=== PATIENT | male | born 1965 | race Hispanic/Latino ===

== ENCOUNTER 2024-10-27 23:17 | Emergency (ER) | payer OTHER ==
[~2024-10-27] VITALS: Ht 175.3 cm; Wt 87.1 kg
--- NOTE | 2024-10-27 23:25 | NUR ---
SEPSIS ALERT CALLED OVERHEAD TO ROOM 20; PT WITH TEMP OF 104.6 AND PULSE OF 164
[2024-10-27] MEDS ORDERED: IOHEXOL 350 MG/ML 100ML INFUS..BTL IV ONE (23:34)
[2024-10-27 23:41] LABS: ADD UA MICROSCOPIC YES; APPEARANCE,URINE TURBID (CLEAR); GLUCOSE, URINE (UA) NEGATIVE (NEGATIVE); LEUKOCYTE ESTERASE ,URINE 500 Leu/uL (NEGATIVE); NITRATE,URINE NEGATIVE (NEGATIVE); OCCULT BLOOD,URINE MODERATE (NEGATIVE)
[2024-10-27 23:42] LABS: IMMATURE GRANULOCYTE ABSOLUTE 0.05 K/uL (0-1); NUCLEATED RED BLOOD CELLS 0.0 % (0.0-0.19); PLATELET COUNT (AUTO) 152 K/uL (130-400); RED BLOOD CELL COUNT(AUTO) 5.26 MIL/uL (4.50-6.20); RED CELL DISTRIBUTION WIDTH 13.6 % (11.0-15.5); WHITE BLOOD COUNT (AUTO) 7.1 K/uL (4.8-10.8)
[2024-10-27] MEDS ORDERED: LACTATED RINGERS 1000ML IV ONE (23:43)
[2024-10-27] MEDS: LACTATED RINGERS 1000ML IV STA (23:43)
--- NOTE | 2024-10-27 23:43 | ERN ---
General Chief Complaint: Dizzy/Light Headed Stated Complaint: BURNING WHEN VOIDING, DIZZINESS, BODYACHES, FEVER Time Seen by MD: 23:23 Source: patient History of Present Illness Initial Comments 58-year-old healthy male who at work today noted painful urination accompanied with fevers chills aches and lightheadedness. He comes to the emergency room stating that he has a urinary tract infection. He says he has had one in the past many years ago. When asked about other medical problems he states none. On arrival in the emergency room the patient is febrile tachycardic and diaphoretic a sepsis alert was called. Allergies: Coded Allergies: No Known Allergies (Unverified Allergy, Unknown, 10/27/24) Past Medical History Past Medical History: No Pertinent History Past Surgical History: None Constitutional: (+) chills, (+) diaphoresis, (+) fever, (+) weakness EENTM: (-) eye pain, (-) blurred vision, (-) tearing, (-) double vision, (-) ear pain, (-) ear discharge, (-) nose pain, (-) nose congestion, (-) throat pain, (-) Throat swelling, (-) mouth pain, (-) tooth pain, (-) mouth swelling, (-) other documentation Respiratory: (+) short of breath Cardiovascular: (-) chest pain, (-) edema, (-) palpitations, (-) syncope, (-) dyspnea on exertion, (-) other documentation Gastrointestinal/Abdominal: (-) nausea, (-) vomiting, (-) diarrhea, (-) abdominal pain, (-) abdominal distention, (-) constipation, (-) rectal bleeding, (-) dark stool/melena, (-) other documentation Genitourinary: (+) dysuria Musculoskeletal: (-) Neck pain, (-) back pain, (-) Flank Pain, (-) joint pain, (-) joint swelling, (-) muscle pain, (-) muscle stiffness, (-) gout, (-) other documentation Neuro: (-) altered mental status, (-) headache, (-) syncope, (-) paralysis, (-) numbness, (-) seizure, (-) pre-existing deficit, (-) tremors, (-) weakness, (-) dizziness, (-) slurred speech, (-) vertigo, (-) other documentation Physical Exam General Appearance: (+) moderate distress General Appearance comment Alert oriented diaphoretic sweating tachycardic Orientation: (+) alert, (+) oriented x 3 Head/Face Trauma: No Eye: bilateral eye normal inspection, bilateral eye PERRL, bilateral eye EOMI Ear, Nose, Throat: (+) hearing grossly normal, (+) normal ENT inspection, (+) normal pharynx Neck: (+) normal inspection, (+) supple, (+) full range of motion Respiratory: (+) chest non-tender, (+) lungs clear, (+) well ventilated Heart: (+) tachycardia Vascular: (+) no edema, (+) normal peripheral pulse Gastrointestinal: (+) soft, (+) non-tender, (+) bowel sound present Results Laboratory and Microbiology Lab and Micro Result Laboratory Tests Test 10/27/24 23:27 10/27/24 23:30 10/27/24 23:33 10/28/24 00:24 Influenza Type A Antigen Negative For Type A Influenza Type B Antigen Negative For Type B SARS-CoV-2, RNA, NAAT NEGATIVE SARS CoV-2 Group A Streptococcus Rapid negative (NEGATIVE) Urine Color YELLOW (YELLOW) Urine Appearance TURBID (CLEAR) Urine pH 6.5 (5.0-8.0) Urine Specific [place] 1.025 (1.001-1.031) Urine Protein 200 mg/dL (NEGATIVE) H Urine Glucose (UA) NEGATIVE mg/dL (NEGATIVE) Urine Ketones 5 mg/dL (NEGATIVE) H Urine Occult Blood MODERATE (NEGATIVE) H Urine Nitrate NEGATIVE (NEGATIVE) Urine Bilirubin NEGATIVE mg/dL (NEGATIVE) Urine Urobilinogen 0.2 mg/dL (0.2-1.0) Urine Leukocyte Esterase 500 Salvatore/uL (NEGATIVE) H Urine RBC TNTC /HPF (0-1) H Urine WBC TNTC /HPF (0-1) H Urine WBC Clumps (Auto) MOD /HPF (0-1) Urine Transitional Epithelial Cells Few /HPF (None Seen) Urine Bacteria RARE /HPF (None Seen) White Blood Count 7.1 K/uL (4.8-10.8) Red Blood Count 5.26 MIL/uL (4.50-6.20) Hemoglobin 16.7 g/dL (14.0-18.0) Hematocrit 46.8 % (42-54) Mean Corpuscular Volume 89.0 fL (79-99) Mean Corpuscular Hemoglobin 31.7 pg (27.0-33.0) Mean Corpuscular Hemoglobin Concent 35.7 g/dL (32.0-36.0) Red Cell Distribution Width 13.6 % (11.0-15.5) Platelet Count 152 K/uL (130-400) Mean Platelet Volume 11.0 fL (7.5-10.5) H Immature Granulocyte % (Auto) 0.7 % (0-1) Neutrophils (%) (Auto) 70.5 % (40.0-77.0) Lymphocytes (%) (Auto) 27.1 % (21.0-51.0) Monocytes (%) (Auto) 0.7 % (3.0-13.0) L Eosinophils (%) (Auto) 0.6 % (0.0-8.0) Basophils (%) (Auto) 0.4 % (0.0-5.0) Neutrophils # (Auto) 5.0 K/uL (1.8-7.7) Lymphocytes # (Auto) 1.9 K/uL (1.0-4.8) Monocytes # (Auto) 0.1 K/uL (0.1-1.0) Eosinophils # (Auto) 0.04 K/uL (0.00-0.70) Basophils # (Auto) 0.03 K/uL (0.00-0.20) Absolute Immature Granulocyte (auto 0.05 K/uL (0-1) Nucleated Red Blood Cells 0.0 % (0.0-0.19) Sodium Level 139 mmol/L (136-145) Potassium Level 3.4 mmol/L (3.5-5.1) L Chloride Level 105 mmol/L (101-111) Carbon Dioxide Level 24 mmol/L (21-32) Blood Urea Nitrogen 19 mg/dL (7-18) H Creatinine 1.4 mg/dL (0.5-1.3) H Glomerular Filtration Rate Calc 59 mL/min (>90) Random Glucose 131 mg/dL (70-105) H Lactic Acid Level 2.4 mmol/L (0.8-2.5) Total Calcium 8.5 mg/dL (8.5-10.1) Magnesium Level 1.70 mg/dL (1.80-2.40) L Total Creatine Kinase 127 U/L (21-232) Troponin I High Sensitivity 6 ng/L (4-75) Blood Gas Specimen Type Arterial Arterial Blood pH 7.538 (7.350-7.450) Arterial Blood Partial Pressure CO2 22 mmHg (35-48) L Arterial Blood Partial Pressure O2 106.8 mmHg (83.0-108.0) Arterial Blood HCO3 18.4 mmol/L (21.0-28.0) L Arterial Blood Oxygen Saturation 98.5 % (94.0-98.0) H Arterial Blood Base Excess -1.9 mmol/L (-2.0-3.0) Blood Gas Temperature 37.0 CELSIUS (35.5-37.0) Blood Gas Flow-by 2.00 L/min (0.00-15.00) Blood Gas Vent Mode 2LNC (ROOM AIR) FiO2 28.0 % Blood Gas Specimen Comment RR RN Test 10/28/24 02:15 Lactic Acid Level 1.9 mmol/L (0.8-2.5) MDM MDM: Differential diagnosis: UTI, pyelonephritis, perforated ulcer disease, upper respiratory tract infection, acute OR, Rationale: Tests considered and ordered secondary to shared decision making include: Previous outside records reviewed: Old ER visits. Risk of complication and/or morbidity or mortality of patient management: None Medications-Per medication reconciliation Need for hospitalization: Patient does meet criteria for hospitalization. Need for emergency major/minor surgery: No There are no social concerns with this patient. Prescription drug management Prescriptions will include symptomatic care Patient's prior external medical records from other ER visits were reviewed by me as indicated. Prior testing and results from previous visits were reviewed. Prior tests were taken into account with medical decision making and resource utilization, independent historian/historians were used to obtain complete medical history. I independently interpreted the test that were performed, results were reviewed by me and considered findings on radiology if ordered. Patient's CBC is normal. He does have a urinary tract infection with a large urine esterase activity. Chemistry panel initially showed a lactate of 2.4, after 2 L of fluid his serum lactate decreased to 1.9. Patient's BUN and creatinine are both elevated by a very small amount. I did give the patient a g of Rocephin. I will discharge him with a seven day supply of Ancef. ED Course Orders Procedure Category Date Status Time Iv Insertion CPOE 10/27/24 Transmitted 23:27 Pulse Ox(Continuous) RT 10/27/24 Transmitted 23:27 Vital Signs Per CPOE 10/27/24 Transmitted Routine 23:27 12 Lead Ekg Tracing- EKG 10/27/24 Logged Technical 23:27 Cbc With Differential LAB 10/27/24 Complete 23:27 Blood Cult JACI 10/27/24 In Process 23:27 Urinalysis Profile LAB 10/27/24 Complete 23:27 Culture Urine JACI 10/27/24 In Process 23:27 Creatine Kinase, Total LAB 10/27/24 Complete 23:27 Troponin I High LAB 10/27/24 Complete Sensitivity 23:27 Lactic Acid LAB 10/27/24 Complete 23:27 Basic Metabolic Panel LAB 10/27/24 Complete 23:27 Covid Rna Naat LAB 10/27/24 Complete 23:27 Influenza Type A & B, LAB 10/27/24 Complete Rapid 23:27 Rapid (Group A Strep) LAB 10/27/24 Complete 23:27 12 Lead Ekg Tracing- EKG 10/27/24 Logged Technical 23:27 Lactated Ringers PHA 10/27/24 Complete 1000ml (Lactated 23:31 Ceftriaxone 1g Vial PHA 10/28/24 Complete (Rocephine 1g Inj) 00:00 Ct Abdomen/Pelvis CT 10/27/24 Resulted W/Wo Contras 23:31 Acetaminophen 500mg PHA 10/27/24 Complete Tab (Tylenol 500mg T 23:33 Acetaminophen 500mg PHA 10/28/24 Complete Tab (Tylenol 500mg T 00:00 Arterial Blood Gas RT 10/27/24 Transmitted 23:38 Iohexol (Omnipaque) PHA 10/28/24 Complete 00:23 Arterial Blood Gas LAB 10/28/24 Complete 00:24 Lactated Ringers PHA 10/28/24 In Process 1000ml (Lactated 01:00 Lactic Acid LAB 10/28/24 Complete 02:00 Magnesium LAB 10/28/24 Complete 01:23 Current Medications Medications (Trade) Dose Ordered Sig/Isaak Route PRN Reason Start Time Stop Time Status Last Admin Dose Admin Acetaminophen (TYLenol 500MG TAB) 500 mg STK-MED ONCE .ROUTE 10/27/24 23:33 10/27/24 23:33 DC Acetaminophen (TYLenol 500MG TAB) 1,000 mg ONCE ONCE PO 10/28/24 00:00 10/28/24 00:01 DC 10/27/24 23:42 Ceftriaxone Sodium (ROCEphine 1G INJ) 1 gm ONCE ONCE IVPB 10/28/24 00:00 10/28/24 00:01 DC 10/27/24 23:51 Iohexol (Omnipaque) 35,000 mg STK-MED ONCE IV 10/28/24 00:23 10/28/24 00:24 DC Lactated Ringer's (Lactated Ringers 1000ml) 1,000 ml BOLUS IV 10/28/24 01:00 11/27/24 00:59 10/28/24 01:07 Lactated Ringer's (Lactated Ringers 1000ml) 1,000 ml BOLUS STAT IV 10/27/24 23:31 10/27/24 23:37 DC 10/27/24 23:43 Vital Signs Date Time Temp Pulse Resp B/P (MAP) Pulse Ox O2 Delivery O2 Flow Rate FiO2 10/28/24 02:21 100.2 104 22 108/73 93 Room Air* 0 21 10/28/24 00:01 102.7 122 22 108/71 94 Nasal Cannula* 2 28 10/27/24 23:44 104.5 149 38 150/91 92 Room Air* 0 21 10/27/24 23:42 104.5 10/27/24 23:24 104.5 164 32 203/109 94 Room Air DX & DISP Disposition: Discharge Departure Impression: Primary Impression: Urinary tract infection Additional Impression: Lactic acidosis Condition: Stable Scripts Cephalexin Monohydrate (Keflex) 500 Mg Cap 500 MG PO QID for 7 Days, #28 CAP Prov: LANDON TRIPLETT MD 10/28/24 Additional Instructions: You have a urinary tract infection. You also have signs of dehydration. Please take your antibiotics for the full course. Please drink plenty of water, drink enough water so that your urine runs clear at least once a day. Your CT scan does show bilateral kidney stones however none of them are blocking your urine. Please return if your symptoms get worse or if you do have recurrent feelings of dizziness fevers chills. Referrals: NONE (PCP) LANDON TRIPLETT MD Oct 27, 2024 23:43
[2024-10-27 23:46] LABS: WBC CLUMP MOD /HPF (0-1)
[2024-10-27 23:47] LABS: RAPID GROUP A STREP negative (NEGATIVE)
[2024-10-27 23:50] LABS: CREATININE 1.4 mg/dL (0.5-1.3); GLOMERULAR FILTR. RATE CALC 59.0 mL/min (>90); GLUCOSE,RANDOM 131.0 mg/dL (70-105); SODIUM SERUM 139.0 mmol/L (136-145); UREA NITROGEN, BLOOD 19.0 mg/dL (7-18)
[2024-10-27 23:50] LABS: SARS-CoV-2, RNA, NAAT NEGATIVE SARS CoV-2 (NEGATIVE)
[2024-10-27 23:54] LABS: INFLUENZA TYPE A Negative For Type A (NEGATIVE); INFLUENZA TYPE B Negative For Type B (NEGATIVE)
[2024-10-27 23:55] LABS: CREATINE KINASE, TOTAL 127.0 U/L (21-232)
[2024-10-28 00:15] VITALS: TEMP 102.7
[2024-10-28] MEDS ORDERED: IOHEXOL 350 MG/ML 100ML INFUS..BTL IV ONE (00:23)
[2024-10-28 00:26] LABS: ABG BASE EXCESS -1.9 mmol/L (-2.0-3.0); ABG HCO3 18.4 mmol/L (21.0-28.0); ABG OXYGEN SATURATION 98.5 % (94.0-98.0); ABG PCO2 22 mmHg (35-48); ABG PH 7.538 (7.350-7.450); DEVICE COMMENT RR RN; PO2, ARTERIAL BG 106.8 mmHg (83.0-108.0); TEMPERATURE, CELSIUS BG 37.0 CELSIUS (35.5-37.0); VENT MODE, BG 2LNC (ROOM AIR)
[2024-10-28] MEDS: LACTATED RINGERS 1000ML IV SCH (01:07)
--- NOTE | 2024-10-28 01:27 | HMCIMG ---
EXAM: CT Abdomen and Pelvis without and with IV contrast. CLINICAL HISTORY: Nephrolithiasis. TECHNIQUE: Post-contrast thin collimated axial CT images of the abdomen and pelvis were obtained, with sagittal and coronal reformatted images also submitted. A CT scan is done according to ALARA (As Low As Reasonably Achievable). COMPARISON: None. FINDINGS: Unremarkable visualized lung parenchyma. There is no focal abnormality appreciated within the liver, gallbladder, pancreas, spleen, or adrenals. There are a couple of 2-3 mm nonobstructive bilateral renal calculi. 3 mm cortical cyst in the interpolar region of the left kidney. There is no obvious bowel wall thickening. Bowel loops are normal in caliber without evidence of obstruction or ileus. The appendix is unremarkable. The urinary bladder is partially distended with mild to moderate wall thickening. Moderate enlargement of the prostate. The prostate measures 6.4 x 6.4 x 5.4 cm. No lymphadenopathy. No free fluid. No pneumoperitoneum. No gross abnormality in the abdominal vessels. There is no acute osseous abnormality. Thoracolumbar spondylosis. IMPRESSIONS: Nonobstructive renal calculi bilaterally. No ureteral calculus or hydronephrosis is evident. Moderate prostatomegaly with mild to moderate chronic cystitis. 3 mm cortical cyst in the interpolar region of the left kidney. /Parth
[2024-10-28] MEDS ORDERED: CEPH500B PO (02:38)
[2024-10-28 03:40] VITALS: BP 110/64; PULSE 99; RESP 22; TEMP 99.4; O2SAT 95
--- NOTE | 2024-10-28 03:40 | NUR ---
PER ED MD, PATIENT CLEARED FOR DISCHARGE
--- NOTE | 2024-10-28 05:30 | EKG ---
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
== END 2024-10-28 03:41 | disposition home or self-care (01) ==
LOC: EDH 23:17
DX: N39.0 Urinary tract infection, site not specified (principal); E87.20 Acidosis, unspecified; Z20.822 Contact with and (suspected) exposure to COVID-19
CPT/HCPCS: 99285; 74178; 96365; 87635; 82550; 83735; 84484; 80048; 82803; 85025; 87040 ×2; 87086 ×3; 87186 ×2; 87880; 87804 ×2; 83605 ×2; 81001; 36415 ×2; 93005; 96361; 36600; J7120 ×2; J0696; Q9967

== ENCOUNTER 2024-10-29 09:51 | Inpatient (IN) | payer OTHER ==
[~2024-10-29] VITALS: Ht 175.3 cm; Wt 85.7 kg
[~2024-10-29 09:51] MED LIST: CEPH500B PO
--- NOTE | 2024-10-29 10:13 | ERN ---
General Chief Complaint: Painful Urination Stated Complaint: PAINFUL URINATION Time Seen by MD: 09:52 Source: patient History of Present Illness Initial Comments Patient is a 58-year-old gentleman coming in with dysuria. Patient states that he has seen couple of days ago in the hospital hydrated fluids due to urinary tract infection and lactic acidosis he presented with. He states since then he has been having some discomfort in his here for further evaluation. Allergies: Coded Allergies: No Known Allergies (Unverified Allergy, Unknown, 10/27/24) Home Meds Active Scripts Cephalexin Monohydrate (Keflex) 500 Mg Cap, 500 MG PO QID for 7 Days, #28 CAP Prov:LANDON TRIPLETT MD 10/28/24 Past Medical History Past Medical History: UTI Past Surgical History: None ROS Dictation CONSTITUTIONAL: No chills, no fever, no weakness, no diaphoresis, no malaise. HEAD/FACE: No signs of trauma. EENT: No eye pain, no blurred vision, no tearing, no double vision, no ear pain, no ear discharge, no nose pain, no nasal congestion, no throat pain, no throat swelling, no mouth pain. RESPIRATORY: No cough, no orthopnea, no SOB, no stridor, no wheezing. CARDIOVASCULAR: No chest pain, no edema, no palpitations, no syncope. GASTROINTESTINAL/ABDOMINAL: No abdominal pain, no constipation, no diarrhea, no nausea, no vomiting. GENITOURINARY: No abnormal discharge, dysuria, no frequent urination, no hematuria. No complaints of pain in the genitals. MUSCULOSKELETAL: No back pain, no gout, no joint pain, no joint swelling, no muscle pain, no muscle stiffness, no neck pain. INTEGUMENTARY: No change in color, no change in hair/nails, no dryness, no lesion, no lumps, no rash. NEUROLOGICAL/PSYCH: No anxiety, not depressed, no emotional problem, no headache, no numbness, no pre-existing deficit, no history of seizures, no tremors, no weakness. HEMATOLOGIC/LYMPHATIC: Not anemic, no history of blood clots, no apparent bleeding, no bruising, glands not swollen. All Systems Negative, Except as Noted. Physical Exam Physical Exam Dictation VITAL SIGNS: Reviewed. GENERAL APPEARANCE: Alert, oriented x3, no acute distress, obese. HEAD AND FACE: Non-traumatic. EYES: PERRL, pink conjunctivas, eyelid no trauma, anterior chamber clear. EARS: Pinnas intact and no signs of trauma or erythema. Ear canals clear and no discharge. TMs no erythema. NOSE: No discharge, no bleeding. OROPHARYNX: Mouth normal, teeth no caries, tongue pink. Pharynx clear, no erythema. Tonsils no exudates, no abscesses noted. Mucous membrane moist. NECK: Supple, non-tender, no thyromegaly, no masses, no JVD, no bruits. BREAST: Deferred. CHEST: No tenderness, no crepitus, no paradoxical movement, no retractions. LUNGS: Clear, well-ventilated, symmetric, no rales, no wheezing, no rhonchi, no stridor, good breath sounds bilaterally. HEART: Regular rate, regular rhythm, no murmur, no gallops. VASCULAR: No peripheral edema. ABDOMEN: Soft, positive bowel sounds, nondistended, no guarding, nontender, no rebound, no masses no hepatomegaly, no splenomegaly, no Maldonado's sign, no hernias. RECTAL: Deferred. GENITAL: Deferred. NEUROLOGICAL: Normal speech, gross motor function intact, gross sensory function intact. MUSCULOSKELETAL: Neck nontender, full range of motion, back nontender, full range of motion. EXTREMITIES: Nontender, full range of motion. SKIN: Color pink, dry, no turgor, no rash, no lacerations, no abrasions, no contusions. LYMPHATICS: Deferred. Results Laboratory and Microbiology Lab and Micro Result Laboratory Tests Test 10/29/24 10:06 10/29/24 10:44 White Blood Count 14.8 K/uL (4.8-10.8) H Red Blood Count 5.22 MIL/uL (4.50-6.20) Hemoglobin 16.4 g/dL (14.0-18.0) Hematocrit 47.5 % (42-54) Mean Corpuscular Volume 91.0 fL (79-99) Mean Corpuscular Hemoglobin 31.4 pg (27.0-33.0) Mean Corpuscular Hemoglobin Concent 34.5 g/dL (32.0-36.0) Red Cell Distribution Width 14.1 % (11.0-15.5) Platelet Count 132 K/uL (130-400) Mean Platelet Volume 11.2 fL (7.5-10.5) H Immature Granulocyte % (Auto) 0.5 % (0-1) Neutrophils (%) (Auto) 85.8 % (40.0-77.0) H Lymphocytes (%) (Auto) 6.8 % (21.0-51.0) L Monocytes (%) (Auto) 5.9 % (3.0-13.0) Eosinophils (%) (Auto) 0.7 % (0.0-8.0) Basophils (%) (Auto) 0.3 % (0.0-5.0) Neutrophils # (Auto) 12.7 K/uL (1.8-7.7) H Lymphocytes # (Auto) 1.0 K/uL (1.0-4.8) Monocytes # (Auto) 0.9 K/uL (0.1-1.0) Eosinophils # (Auto) 0.11 K/uL (0.00-0.70) Basophils # (Auto) 0.04 K/uL (0.00-0.20) Absolute Immature Granulocyte (auto 0.08 K/uL (0-1) Segmented Neutrophils % 62 % (40-70) Band Neutrophils % 28 % (0-2) H Lymphocytes % (Manual) 6 % (22-44) L Monocytes % (Manual) 3 % (2-9) Eosinophils % (Manual) 1 % (1-6) Nucleated Red Blood Cells 0.0 % (0.0-0.19) Differential Comment MANUAL DIFFERENTIAL White Cell Morphology Comment CONSISTENT W/DIFF Platelet Morphology Comment ADEQUATE Red Blood Cell Morphology NORMAL Sodium Level 139 mmol/L (136-145) Potassium Level 3.8 mmol/L (3.5-5.1) Chloride Level 105 mmol/L (101-111) Carbon Dioxide Level 27 mmol/L (21-32) Blood Urea Nitrogen 19 mg/dL (7-18) H Creatinine 1.2 mg/dL (0.5-1.3) Glomerular Filtration Rate Calc 71 mL/min (>90) Random Glucose 112 mg/dL (70-105) H Total Calcium 8.8 mg/dL (8.5-10.1) Urine Color YELLOW (YELLOW) Urine Appearance HAZY (CLEAR) Urine pH 7.5 (5.0-8.0) Urine Specific [place] 1.030 (1.001-1.031) Urine Protein 100 mg/dL (NEGATIVE) H Urine Glucose (UA) NEGATIVE mg/dL (NEGATIVE) Urine Ketones 20 mg/dL (NEGATIVE) H Urine Occult Blood MODERATE (NEGATIVE) H Urine Nitrate NEGATIVE (NEGATIVE) Urine Bilirubin NEGATIVE mg/dL (NEGATIVE) Urine Urobilinogen >=8.0 mg/dL (0.2-1.0) H Urine Leukocyte Esterase 500 Salvatore/uL (NEGATIVE) H Urine RBC 26-50 /HPF (0-1) H Urine WBC TNTC /HPF (0-1) H Urine Bacteria FEW /HPF (None Seen) Labs Reviewed?: Yes EKG/XRAY/US/CT/MRI CT Scan Comment [address] [place] [address] IMAGING REPORT Signed PATIENT: MAURICE CHAVEZ MR#: [id number] : 1965 SEX: M AGE: 58 LOCATION: [facility] ORDER 33 STATUS: [facility] REPORT#: [id number] SERVICE 233 REASON: nephrolithiasis ORDERING PHYSICIAN: LANDON TRIPLETT MD PROCEDURE: ABD PELWWO - CT ABDOMEN/PELVIS W/WO CONTRAS EXAM: CT Abdomen and Pelvis without and with IV contrast. CLINICAL HISTORY: Nephrolithiasis. TECHNIQUE: Post-contrast thin collimated axial CT images of the abdomen and pelvis were obtained, with sagittal and coronal reformatted images also submitted. A CT scan is done according to ALARA (As Low As Reasonably Achievable). COMPARISON: None. FINDINGS: Unremarkable visualized lung parenchyma. There is no focal abnormality appreciated within the liver, gallbladder, pancreas, spleen, or adrenals. There are a couple of 2-3 mm nonobstructive bilateral renal calculi. 3 mm cortical cyst in the interpolar region of the left kidney. There is no obvious bowel wall thickening. Bowel loops are normal in caliber without evidence of obstruction or ileus. The appendix is unremarkable. The urinary bladder is partially distended with mild to moderate wall thickening. Moderate enlargement of the prostate. The prostate measures 6.4 x 6.4 x 5.4 cm. No lymphadenopathy. No free fluid. No pneumoperitoneum. No gross abnormality in the abdominal vessels. There is no acute osseous abnormality. Thoracolumbar spondylosis. IMPRESSIONS: Nonobstructive renal calculi bilaterally. No ureteral calculus or hydronephrosis is evident. Moderate prostatomegaly with mild to moderate chronic cystitis. 3 mm cortical cyst in the interpolar region of the left kidney. /Kimberly DICTATED BY: PEDRO SMITH Jr., MD DATE: 10/28/24225 ELECTRONICALLY SIGNED BY: PEDRO SMITH Jr., MD DATE: 10/28/24225 MDM MDM: Differential diagnosis: UTI, abdominal pain, sepsis, Rationale: Tests considered and ordered secondary to shared decision making include: Previous outside records reviewed: Old ER visits. Risk of complication and/or morbidity or mortality of patient management: None Medications-Per medication reconciliation Need for hospitalization: Patient does meet criteria for hospitalization. Need for emergency major/minor surgery: No There are no social concerns with this patient. Prescription drug management Prescriptions will include symptomatic care Patient's prior external medical records from other ER visits were reviewed by me as indicated. Prior testing and results from previous visits were reviewed. Prior tests were taken into account with medical decision making and resource utilization, independent historian/historians were used to obtain complete medical history. I independently interpreted the test that were performed, results were reviewed by me and considered findings on radiology if ordered. Medical management and examination interpretation discussions were had by me with other qualified healthcare professionals as indicated for the patient's care. Patient will be admitted under the care of hospitalist group for ongoing management. ED Course Orders Procedure Category Date Status Time Cbc With Differential LAB 10/29/24 Complete 09:57 Basic Metabolic Panel LAB 10/29/24 Complete 09:57 Urinalysis LAB 10/29/24 Complete W/Microscopic 09:57 Ketorolac PHA 10/29/24 Complete Tromethamine 30mg/Ml 10:30 Tamsulosin Hcl PHA 10/29/24 Complete (Flomax) 10:30 Morphine 2mg Syg PHA 10/29/24 Complete (Morphine 2mg Syg) 11:00 Ondansetron 4mg Inj PHA 10/29/24 Complete (Zofran 4mg Inj) 11:00 Manual Differential LAB 10/29/24 Complete 10:06 Ceftriaxone 1g Vial PHA 10/29/24 In Process (Rocephine 1g Inj) 13:00 Current Medications Medications (Trade) Dose Ordered Sig/Isaak Route PRN Reason Start Time Stop Time Status Last Admin Dose Admin Ceftriaxone Sodium (ROCEphine 1G INJ) 1 gm ONCE ONCE IVPB 10/29/24 13:00 10/29/24 13:01 Ketorolac Tromethamine (toRADol) 30 mg ONCE ONCE IVP 10/29/24 10:30 10/29/24 10:31 DC 10/29/24 10:31 Morphine Sulfate (morPHINE 2MG SYG) 2 mg ONCE ONCE IVP 10/29/24 11:00 10/29/24 11:01 DC 10/29/24 11:15 Ondansetron HCl (zoFRAN 4MG INJ) 4 mg ONCE ONCE IVP 10/29/24 11:00 10/29/24 11:01 DC 10/29/24 11:15 Tamsulosin HCl (FloMAX) 0.4 mg ONCE ONCE PO 10/29/24 10:30 10/29/24 10:31 DC 10/29/24 10:30 Vital Signs Date Time Temp Pulse Resp B/P (MAP) Pulse Ox O2 Delivery O2 Flow Rate FiO2 10/29/24 09:55 99.0 85 18 150/92 98 Room Air* 0 21 10/29/24 09:53 99.0 85 18 150/92 98 Room Air 0 DX & DISP Disposition: Inpatient Decision to Admit Time: 12:37 Departure Impression: Primary Impression: Urinary tract infection Additional Impression: Lactic acidosis Condition: Stable Referrals: SELF,REFERRAL (PCP) WOLFGANG BRIDGES MD Oct 29, 2024 10:13
[2024-10-29 10:14] LABS: IMMATURE GRANULOCYTE ABSOLUTE 0.08 K/uL (0-1); NUCLEATED RED BLOOD CELLS 0.0 % (0.0-0.19); PLATELET COUNT (AUTO) 132 K/uL (130-400); RED BLOOD CELL COUNT(AUTO) 5.22 MIL/uL (4.50-6.20); RED CELL DISTRIBUTION WIDTH 14.1 % (11.0-15.5); WHITE BLOOD COUNT (AUTO) 14.8 K/uL (4.8-10.8)
[2024-10-29 10:20] LABS: CREATININE 1.2 mg/dL (0.5-1.3); GLOMERULAR FILTR. RATE CALC 71.0 mL/min (>90); GLUCOSE,RANDOM 112.0 mg/dL (70-105); SODIUM SERUM 139.0 mmol/L (136-145); UREA NITROGEN, BLOOD 19.0 mg/dL (7-18)
[2024-10-29 11:18] LABS: APPEARANCE,URINE HAZY (CLEAR); GLUCOSE, URINE (UA) NEGATIVE (NEGATIVE); LEUKOCYTE ESTERASE ,URINE 500 Leu/uL (NEGATIVE); NITRATE,URINE NEGATIVE (NEGATIVE); OCCULT BLOOD,URINE MODERATE (NEGATIVE)
[2024-10-29 11:22] LABS: BAND NEUTROPHILS % (MANUAL) 28 % (0-2); EOSINOPHILS % (MANUAL) 1 % (1-6); LYMPHOCYTES % (MANUAL) 6 % (22-44); MONOCYTES % (MANUAL) 3 % (2-9); SEGMENTED NEUTROPHILS % 62 % (40-70)
[2024-10-29 11:23] LABS: MAN.DIFF COMMENT-IMPRESSION MANUAL DIFFERENTIAL; PLATELET MORPHOLOGY COMMENT ADEQUATE; WBC MORPHOLOGY CONSISTENT W/DIFF
[2024-10-29] MEDS ORDERED: PoTASSium chl 10% ELIXIR 20MEQ 20 MEQ/15 ML UDCUP PO PRN (13:00)
--- NOTE | 2024-10-29 13:08 | NUR ---
PT DOES NOT TAKE REGULAR MEDICATINS,NO RECONCILIATION.
--- NOTE | 2024-10-29 13:27 | HP ---
[facility] HISTORY AND PHYSICAL Date of Service: Oct 29, 2024 Time of Service: 13:19 HISTORY OF PRESENT ILLNESS: [ ] Admission date 10/29/2024 Chief complaints abdominal pain PCP self referral This is a 58-year-old male that presents in ED with chief complaints of suprapubic abdominal pain. Onset two days. Patient came to ED yesterday and was discharged home with oral antibiotics for UTI. By patient continue to have abdominal pain secondary to abdomen distention at home unable to urinate patient reports during urination burning in small amounts of urine. Patient came to ED for further evaluation and treatment patient was given pain medication and Castaneda catheter was placed. Bladder scan was done in ED no urinary retention. Patient got some relief once Castaneda catheter was placed. Patient has no past history of recurrent UTIs. Denies any prostate problems in the past. Denied fever chills nausea or vomiting. Urinalysis positive for UTI leukocyte esterase 500 Labs WBCs 14.8, neutrophils 85.8 Imaging Nonobstructive renal calculi bilaterally. No ureteral calculus or hydronephrosis is evident. Moderate prostatomegaly with mild to moderate chronic cystitis. 3 mm cortical cyst in the interpolar region of the left kidney. REVIEW OF SYSTEMS A12 point ROS was obtained all relevant positives were documented otherwise ROS negative PAST MEDICAL HISTORY: [ ] Refer to HPI PAST SURGICAL HISTORY: [ ] No surgeries in the past PAST SOCIAL HISTORY: [ ] Denies smoking tobacco products or vaping drinks alcohol on occasionally FAMILY HISTORY: [ ] Noncontributory Coded Allergies: No Known Allergies (Unverified Allergy, Unknown, 10/27/24) PHYSICAL EXAM GENERAL APPEARANCE: The patient is awake, alert, and oriented, in no acute cardiopulmonary distress. NEUROLOGICAL: Cranial nerves II-XII grossly intact. Motor is 5/5 in bilateral upper and lower extremities proximal to distal. No sensory deficits. HEENT: Face is symmetric. Pupils are equal and reactive. Extraocular movements are intact. NECK: Supple. No JVD. No thyromegaly. No submental, submandibular, pre- /postauricular, occipital or supraclavicular lymphadenopathy. CHEST: Normal chest expansion. No Telemetry. LUNGS: Absence of any rales, rhonchi or any wheezing. CARDIOVASCULAR: Regular. S1 and S2 normal. No appreciable rubs, murmurs or gallops. ABDOMEN: Soft, ++tender, and ++distended. There is no rebound, voluntary guarding, or rigidity. : Deferred. ++ Castaneda. EXTREMITIES: Non-edematous and not cyanotic. No clubbing. Good capillary refill. SKIN: No skin breakdown. Vital Sign (Last 24 Hours) 10/29/24 12:39 Temp 99.0 Pulse 80 Resp 18 B/P (MAP) 115/74 Pulse Ox 99 O2 Delivery Room Air* O2 Flow Rate 0 FiO2 21 LABS: Laboratory: Test 10/29/24 10:44 10/29/24 10:06 Range/Units Urine Color YELLOW YELLOW Urine Appearance HAZY CLEAR Urine pH 7.5 5.0-8.0 Urine Specific [place] 1.030 1.001-1.031 Urine Protein 100 H NEGATIVE mg/dL Urine Glucose (UA) NEGATIVE NEGATIVE mg/dL Urine Ketones 20 H NEGATIVE mg/dL Urine Occult Blood MODERATE H NEGATIVE Urine Nitrate NEGATIVE NEGATIVE Urine Bilirubin NEGATIVE NEGATIVE mg/dL Urine Urobilinogen >=8.0 H 0.2-1.0 mg/dL Urine Leukocyte Esterase 500 H NEGATIVE Salv[place]/uL Urine RBC 26-50 H 0-1 /HPF Urine WBC TNTC H 0-1 /HPF Urine Bacteria FEW None Seen /HPF White Blood Count 14.8 H 4.8-10.8 K/uL Red Blood Count 5.22 4.50-6.20 MIL/uL Hemoglobin 16.4 14.0-18.0 g/dL Hematocrit 47.5 42-54 % Mean Corpuscular Volume 91.0 79-99 fL Mean Corpuscular Hemoglobin 31.4 27.0-33.0 pg Mean Corpuscular Hemoglobin Concent 34.5 32.0-36.0 g/dL Red Cell Distribution Width 14.1 11.0-15.5 % Platelet Count 132 130-400 K/uL Mean Platelet Volume 11.2 H 7.5-10.5 fL Immature Granulocyte % (Auto) 0.5 0-1 % Neutrophils (%) (Auto) 85.8 H 40.0-77.0 % Lymphocytes (%) (Auto) 6.8 L 21.0-51.0 % Monocytes (%) (Auto) 5.9 3.0-13.0 % Eosinophils (%) (Auto) 0.7 0.0-8.0 % Basophils (%) (Auto) 0.3 0.0-5.0 % Neutrophils # (Auto) 12.7 H 1.8-7.7 K/uL Lymphocytes # (Auto) 1.0 1.0-4.8 K/uL Monocytes # (Auto) 0.9 0.1-1.0 K/uL Eosinophils # (Auto) 0.11 0.00-0.70 K/uL Basophils # (Auto) 0.04 0.00-0.20 K/uL Absolute Immature Granulocyte (auto 0.08 0-1 K/uL Segmented Neutrophils % 62 40-70 % Band Neutrophils % 28 H 0-2 % Lymphocytes % (Manual) 6 L 22-44 % Monocytes % (Manual) 3 2-9 % Eosinophils % (Manual) 1 1-6 % Nucleated Red Blood Cells 0.0 0.0-0.19 % Differential Comment MANUAL DIFFERENTIAL White Cell Morphology Comment CONSISTENT W/DIFF Platelet Morphology Comment ADEQUATE Red Blood Cell Morphology NORMAL Sodium Level 139 136-145 mmol/L Potassium Level 3.8 3.5-5.1 mmol/L Chloride Level 105 101-111 mmol/L Carbon Dioxide Level 27 21-32 mmol/L Blood Urea Nitrogen 19 H 7-18 mg/dL Creatinine 1.2 0.5-1.3 mg/dL Glomerular Filtration Rate Calc 71 >90 mL/min Random Glucose 112 H 70-105 mg/dL Total Calcium 8.8 8.5-10.1 mg/dL Current Medications Medications (Trade) Dose Ordered Sig/Isaak Route PRN Reason Start Time Stop Time Status Last Admin Dose Admin Acetaminophen (TYLenol 325MG TAB) 650 mg Q4H PRN PO TEMPERATURE GREATER THAN 101.5 10/29/24 13:00 11/28/24 12:59 Ceftriaxone Sodium (ROCEphine 1G INJ) 1 gm Q24H IVPB 10/30/24 13:00 11/09/24 12:59 Lactulose (Constulose 20gm/ 30ml Udcup) 20 gm BID PRN PO CONSTIPATION 10/29/24 13:00 11/28/24 12:59 Magnesium Sulfate 50 ml @ 0 mls/hr PROTOCOL PRN IV low mag level 10/29/24 13:00 11/28/24 12:59 Ondansetron HCl (zoFRAN 4MG INJ) 4 mg Q6H PRN IVP NAUSEA/VOMITING 10/29/24 13:00 11/28/24 12:59 Potassium Chloride 100 ml @ 100 mls/hr AD PRN IV POTASSIUM PROTOCOL 10/29/24 13:00 11/28/24 12:59 Potassium Chloride (K-Dur/Klor-Con 20meq) 20 meq AD PRN PO POTASSIUM PROTOCOL 10/29/24 13:00 11/28/24 12:59 Potassium Chloride (KCl 10% Elixir 20meq/15ml) 20 meq AD PRN PO POTASSIUM PROTOCOL 10/29/24 13:00 11/28/24 12:59 Tamsulosin HCl (FloMAX) 0.4 mg DAILY PO 10/30/24 09:00 11/29/24 08:59 DIAGNOSTICS / RADIOLOGY: [ ] ASSESSMENT: UTI POA Failed outpatient treatment POA Leukocytosis POA Dehydration Intractable abdominal pain POA Adult obesity class I POA Suspecting BPH CT abdomen Moderate prostatomegaly POA PLAN: Admit: Med surge condition: Guarded Status: Full code IVF: NS at 75 mL/hour Consultants none Antibiotics: Rocephin1 g every24 hours Microbiology urine cultures in process Flomax 0. 4 mg p.o. daily Imaging sonogram renal Labs CBC CMP in a.m. A1c lipid panel TSH PSA level, Castaneda catheter care every shift Replace electrolytes as needed as per protocol to keep potassium above 4.0 magnesium 2.0. PRN: MEDICATIONS Tylenol 650 mg po every 4 hrs for fever zofran 4 mg IV every 6 hrs for n/v Hydralazine 5 mg IV every 4 hrs systolic pressure > 160 Pain management: Tylenol No.3 As needed Supportive measures: DVT ppx, GI ppx all questions answered time spent: > 35 min Supervising MD: Dr. Flip Roblero c/d This document was generated in part using voice recognition software, occasional wrong word or sound alike substitutions may have occurred due to the inherent limitations of voice recognition software. Read the chart carefully and eh gnize using context, where the substitutions have occurred. Although every effort was made to edit the content, component lab tech and typing errors may occur ADVANCED CARE PLANNING 1. Which of the following were discussed? Hospice Care - Yes / No Therapeutic options - Yes / No Advance Directives - Yes / No Other discussions - 2. Discussed with who? 3. Voluntary nature of this service was explained to the patient? Yes / No 4. Amount of time spent - 5. Reviewed by Physician? (if this service was performed by NPP) Yes / No ATTESTATION BY PHYSICIAN I have seen and examined the patient. I reviewed the documentation, medical decision making, and treatment plan as noted by the mid-level provider above. I agree with the findings and plan of care. Gayle Castelan MD, ELIZABETH NP Oct 29, 2024 13:27
[2024-10-29 14:00] VITALS: O2SAT 100
[2024-10-29 14:02] VITALS: BP 152/88; PULSE 91; RESP 19; TEMP 100.2
[2024-10-29 16:02] VITALS: BP 148/94; PULSE 93; RESP 18; TEMP 101.2
[2024-10-29 19:30] VITALS: O2SAT 94
[2024-10-29 20:00] VITALS: BP 151/90; PULSE 98; RESP 20; TEMP 100.4
[2024-10-30] VITALS (8 sets, daily range): BP systolic 132–157; BP diastolic 73–96; PULSE 70–95; RESP 18–20; TEMP 97.7–102.3; O2SAT 95
[2024-10-30 05:50] LABS: LDL DIRECT 87.0 mg/dL (0-99)
--- NOTE | 2024-10-30 06:15 | HMCIMG ---
EXAMINATION: ULTRASOUND OF THE RETROPERITONEUM. CLINICAL HISTORY: Renal calculi. COMPARISON: CT abdomen and pelvis with contrast dated 10/28/2024. TECHNIQUE: Real-time grayscale ultrasound images of the kidneys. FINDINGS: The kidneys are normal in caliber, the right kidney measures 9.2 x 4.8 x 3.3 cm and the left kidney measures 10.8 x 5.1 x 3.7 cm in its craniocaudal, AP, and transverse dimensions respectively. There is normal renal cortical thickness, and cortical echogenicity. There is no right renal calculus or hydronephrosis bilaterally. There is a calculus that measures 0.3 cm in the lower pole of the left kidney. The urinary bladder is empty with normal wall thickness (0.33 cm). There is Castaneda???s bulb. IMPRESSION: Left renal calculus. No obstruction. Castaneda???s bulb is in situ. /[place]
--- NOTE | 2024-10-30 10:59 | PN ---
[facility] PROGRESS NOTE Date of Service: Oct 30, 2024 Time of Service: 10:53 SUBJECTIVE: [ ] Admission date 10/29/2024 Chief complaints abdominal pain PCP self referral This is a 58-year-old male that presents in ED with chief complaints of suprapubic abdominal pain. Onset two days. Patient came to ED yesterday and was discharged home with oral antibiotics for UTI. By patient continue to have abdominal pain secondary to abdomen distention at home unable to urinate patient reports during urination burning in small amounts of urine. Patient came to ED for further evaluation and treatment patient was given pain medication and Castaneda catheter was placed. Bladder scan was done in ED no urinary retention. Patient got some relief once Castaneda catheter was placed. Patient has no past history of recurrent UTIs. Denies any prostate problems in the past. Denied fever chills nausea or vomiting. 10/30/24 patient continues with low-grade temperature. Urine cultures with Gram- negative ESBL and blood cultures growing gram negative simi We will continue with Rocephin2 g IV daily. Replace electrolytes as needed we will discontinue Castaneda bladder training. REVIEW OF SYSTEMS A12 point ROS was obtained all relevant positives were documented otherwise ROS negative PHYSICAL EXAM GENERAL APPEARANCE: The patient is awake, alert, and oriented, in no acute cardiopulmonary distress. NEUROLOGICAL: Cranial nerves II-XII grossly intact. Motor is 5/5 in bilateral upper and lower extremities proximal to distal. No sensory deficits. HEENT: Face is symmetric. Pupils are equal and reactive. Extraocular movements are intact. NECK: Supple. No JVD. No thyromegaly. No submental, submandibular, pre- /postauricular, occipital or supraclavicular lymphadenopathy. CHEST: Normal chest expansion. No Telemetry. LUNGS: Absence of any rales, rhonchi or any wheezing. CARDIOVASCULAR: Regular. S1 and S2 normal. No appreciable rubs, murmurs or gallops. ABDOMEN: Soft, ++tender, and ++distended. There is no rebound, voluntary guarding, or rigidity. : Deferred. ++ Castaneda. EXTREMITIES: Non-edematous and not cyanotic. No clubbing. Good capillary refill. SKIN: No skin breakdown. Vital Signs (last 8hr) Date Time Temp Pulse Resp B/P (MAP) Pulse Ox O2 Delivery O2 Flow Rate FiO2 10/30/24 08:00 99.1 79 20 137/88 96 Room Air 21 10/30/24 04:21 99.1 81 18 146/85 94 Nasal Cannula LABS: Laboratory: Test 10/30/24 05:11 10/29/24 15:25 10/29/24 10:44 10/29/24 10:06 Range/Units Hemoglobin A1c 5.3 4.0-6.0 % Estimated Average Glucose (eAG) 105 70-126 mg/dL Triglycerides Level 127 30-200 mg/dL Cholesterol Level 131 <200 mg/dL LDL Cholesterol 87 0-99 mg/dL HDL Cholesterol 27 L 29-71 mg/dL Thyroid Stimulating Hormone (TSH) 1.57 0.36-3.74 uIU/mL Whole Blood Glucose 108 70-110 MG/DL Urine Color YELLOW YELLOW Urine Appearance HAZY CLEAR Urine pH 7.5 5.0-8.0 Urine Specific [place] 1.030 1.001-1.031 Urine Protein 100 H NEGATIVE mg/dL Urine Glucose (UA) NEGATIVE NEGATIVE mg/dL Urine Ketones 20 H NEGATIVE mg/dL Urine Occult Blood MODERATE H NEGATIVE Urine Nitrate NEGATIVE NEGATIVE Urine Bilirubin NEGATIVE NEGATIVE mg/dL Urine Urobilinogen >=8.0 H 0.2-1.0 mg/dL Urine Leukocyte Esterase 500 H NEGATIVE [place]/uL Urine RBC 26-50 H 0-1 /HPF Urine WBC TNTC H 0-1 /HPF Urine Bacteria FEW None Seen /HPF White Blood Count 14.8 H 4.8-10.8 K/uL Red Blood Count 5.22 4.50-6.20 MIL/uL Hemoglobin 16.4 14.0-18.0 g/dL Hematocrit 47.5 42-54 % Mean Corpuscular Volume 91.0 79-99 fL Mean Corpuscular Hemoglobin 31.4 27.0-33.0 pg Mean Corpuscular Hemoglobin Concent 34.5 32.0-36.0 g/dL Red Cell Distribution Width 14.1 11.0-15.5 % Platelet Count 132 130-400 K/uL Mean Platelet Volume 11.2 H 7.5-10.5 fL Immature Granulocyte % (Auto) 0.5 0-1 % Neutrophils (%) (Auto) 85.8 H 40.0-77.0 % Lymphocytes (%) (Auto) 6.8 L 21.0-51.0 % Monocytes (%) (Auto) 5.9 3.0-13.0 % Eosinophils (%) (Auto) 0.7 0.0-8.0 % Basophils (%) (Auto) 0.3 0.0-5.0 % Neutrophils # (Auto) 12.7 H 1.8-7.7 K/uL Lymphocytes # (Auto) 1.0 1.0-4.8 K/uL Monocytes # (Auto) 0.9 0.1-1.0 K/uL Eosinophils # (Auto) 0.11 0.00-0.70 K/uL Basophils # (Auto) 0.04 0.00-0.20 K/uL Absolute Immature Granulocyte (auto 0.08 0-1 K/uL Segmented Neutrophils % 62 40-70 % Band Neutrophils % 28 H 0-2 % Lymphocytes % (Manual) 6 L 22-44 % Monocytes % (Manual) 3 2-9 % Eosinophils % (Manual) 1 1-6 % Nucleated Red Blood Cells 0.0 0.0-0.19 % Differential Comment MANUAL DIFFERENTIAL White Cell Morphology Comment CONSISTENT W/DIFF Platelet Morphology Comment ADEQUATE Red Blood Cell Morphology NORMAL Sodium Level 139 136-145 mmol/L Potassium Level 3.8 3.5-5.1 mmol/L Chloride Level 105 101-111 mmol/L Carbon Dioxide Level 27 21-32 mmol/L Blood Urea Nitrogen 19 H 7-18 mg/dL Creatinine 1.2 0.5-1.3 mg/dL Glomerular Filtration Rate Calc 71 >90 mL/min Random Glucose 112 H 70-105 mg/dL Total Calcium 8.8 8.5-10.1 mg/dL Current Medications Medications (Trade) Dose Ordered Sig/Isaak Route PRN Reason Start Time Stop Time Status Last Admin Dose Admin Acetaminophen (TYLenol 325MG TAB) 650 mg Q4H PRN PO TEMPERATURE GREATER THAN 101.5 10/29/24 13:00 11/28/24 12:59 10/30/24 08:26 650 MG Acetaminophen/ Codeine Phosphate (TYLenol-coDEINE TAB) 1 tab Q4H PRN PO MODERATE PAIN (4-6) 10/29/24 15:30 11/28/24 15:29 Ceftriaxone Sodium (ROCEphine 1G INJ) 1 gm Q24H IVPB 10/30/24 13:00 11/09/24 12:59 Lactulose (Constulose 20gm/ 30ml Udcup) 20 gm BID PRN PO CONSTIPATION 10/29/24 13:00 11/28/24 12:59 Magnesium Sulfate 50 ml @ 0 mls/hr PROTOCOL PRN IV low mag level 10/29/24 13:00 11/28/24 12:59 Ondansetron HCl (zoFRAN 4MG INJ) 4 mg Q6H PRN IVP NAUSEA/VOMITING 10/29/24 13:00 11/28/24 12:59 Potassium Chloride 100 ml @ 100 mls/hr AD PRN IV POTASSIUM PROTOCOL 10/29/24 13:00 11/28/24 12:59 Potassium Chloride (K-Dur/Klor-Con 20meq) 20 meq AD PRN PO POTASSIUM PROTOCOL 10/29/24 13:00 11/28/24 12:59 Potassium Chloride (KCl 10% Elixir 20meq/15ml) 20 meq AD PRN PO POTASSIUM PROTOCOL 10/29/24 13:00 11/28/24 12:59 Tamsulosin HCl (FloMAX) 0.4 mg DAILY PO 10/30/24 09:00 11/29/24 08:59 10/30/24 08:26 0.4 MG DIAGNOSTICS / RADIOLOGY: [ ] ASSESSMENT: suspecting bacteremia POA UTI gram negative ESBL POA Failed outpatient treatment POA Leukocytosis POA Dehydration Intractable abdominal pain POA Adult obesity class I POA Suspecting BPH CT abdomen Moderate prostatomegaly POA PLAN: Admit: Med surge condition: Guarded Status: Full code IVF heplock Consultants none Antibiotics: Rocephin 2 g every24 hours Urine culture ESBL blood cultures growing gram rods discontinue Castaneda cath. DTV Flomax 0. 4 mg p.o. daily Imaging sonogram renal noted Labs CBC CMP in a.m. PSA level,pending Replace electrolytes as needed as per protocol to keep potassium above 4.0 magnesium 2.0. Pain management: Tylenol No.3 As needed Supportive measures: DVT ppx, GI ppx all questions answered Supervising MD: Dr. Flip Roblero c/d This document was generated in part using voice recognition software, occasional wrong word or sound alike substitutions may have occurred due to the inherent limitations of voice recognition software. Read the chart carefully and recognize using context, where the substitutions have occurred. Although every effort was made to edit the content, tracer lathe set up operator and typing errors may occur ATTESTATION BY PHYSICIAN I have seen and examined the patient. I reviewed the documentation, medical decision making, and treatment plan as noted by the mid-level provider above. I agree with the findings and plan of care. Gayle Castelan MD, ELIZABETH NP Oct 30, 2024 10:59
[2024-10-30 11:06] LABS: IMMATURE GRANULOCYTE ABSOLUTE 0.05 K/uL (0-1); NUCLEATED RED BLOOD CELLS 0.0 % (0.0-0.19); PLATELET COUNT (AUTO) 125 K/uL (130-400); RED BLOOD CELL COUNT(AUTO) 4.86 MIL/uL (4.50-6.20); RED CELL DISTRIBUTION WIDTH 14.3 % (11.0-15.5); WHITE BLOOD COUNT (AUTO) 9.5 K/uL (4.8-10.8)
[2024-10-30 11:07] LABS: CREATININE 1.3 mg/dL (0.5-1.3); GLOMERULAR FILTR. RATE CALC 64.0 mL/min (>90); GLUCOSE,RANDOM 125.0 mg/dL (70-105); SODIUM SERUM 141.0 mmol/L (136-145); UREA NITROGEN, BLOOD 19.0 mg/dL (7-18)
[2024-10-30 11:12] LABS: ASPARTATE AMINOTRANSFERASE 20.0 U/L (10-37); TOTAL PROTEIN, SERUM 6.1 g/dL (6.0-8.3)
--- NOTE | 2024-10-30 16:21 | NUR ---
DC PLAN VISITED WITH PATIENT. PATIENT LIVES WITH SPOUSE. INDEPENDENT ABLE TO PERFORM ADL'S. PATIENT HAS NO SERVICE OR DME'S. FEELS SAFE TO RETURN HOME. Addendum: 10/30/24 at 1632 by KAYLIN EASLEY RN CM Amended: Links added.
[2024-10-31] VITALS (8 sets, daily range): BP systolic 147–153; BP diastolic 86–104; PULSE 75–85; RESP 18–20; TEMP 97.3–98.4; O2SAT 96
[2024-10-31] MEDS: MAGNESIUM 2GM PREMIX 50ML 50 ML IV PRN (00:27)
[2024-10-31 05:38] LABS: NUCLEATED RED BLOOD CELLS 0.0 % (0.0-0.19); PLATELET COUNT (AUTO) 133.0 K/uL (130-400); RED BLOOD CELL COUNT(AUTO) 4.88 MIL/uL (4.50-6.20); RED CELL DISTRIBUTION WIDTH 13.9 % (11.0-15.5); WHITE BLOOD COUNT (AUTO) 6.6 K/uL (4.8-10.8)
[2024-10-31 05:53] LABS: ASPARTATE AMINOTRANSFERASE 34.0 U/L (10-37); CREATININE 1.1 mg/dL (0.5-1.3); GLOMERULAR FILTR. RATE CALC 78.0 mL/min (>90); GLUCOSE,RANDOM 123.0 mg/dL (70-105); SODIUM SERUM 136.0 mmol/L (136-145); TOTAL PROTEIN, SERUM 6.2 g/dL (6.0-8.3); UREA NITROGEN, BLOOD 14.0 mg/dL (7-18)
[2024-10-31] MEDS: PoTASSium chloRIDE 20MEQ ER 20 MEQ ERTAB PO PRN (06:48)
[2024-10-31] MEDS: LACTULOSE 20 GM/30 ML UDCUP PO PRN (08:33)
--- NOTE | 2024-10-31 09:45 | PN ---
[facility] PROGRESS NOTE Date of Service: Oct 31, 2024 Time of Service: 09:42 SUBJECTIVE: [ ] Admission date 10/29/2024 Chief complaints abdominal pain PCP self referral This is a 58-year-old male that presents in ED with chief complaints of suprapubic abdominal pain. Onset two days. Patient came to ED yesterday and was discharged home with oral antibiotics for UTI. By patient continue to have abdominal pain secondary to abdomen distention at home unable to urinate patient reports during urination burning in small amounts of urine. Patient came to ED for further evaluation and treatment patient was given pain medication and Castaneda catheter was placed. Bladder scan was done in ED no urinary retention. Patient got some relief once Castaneda catheter was placed. Patient has no past history of recurrent UTIs. Denies any prostate problems in the past. Denied fever chills nausea or vomiting. 10/30/24 patient continues with low-grade temperature. Urine cultures with Gram- negative ESBL and blood cultures growing gram negative simi We will continue with Rocephin2 g IV daily. Replace electrolytes as needed we will discontinue Castaneda bladder training. 10/31/24 patient is sitting in chair appears in no distress. Blood cultures were repeated patient on admission cultures ESBL bacteremia in blood in urine. He is currently on Rocephin2 g daily. Remove Castaneda catheter yesterday patient's urine output is adequately. REVIEW OF SYSTEMS A12 point ROS was obtained all relevant positives were documented otherwise ROS negative PHYSICAL EXAM GENERAL APPEARANCE: The patient is awake, alert, and oriented, in no acute cardiopulmonary distress. NEUROLOGICAL: Cranial nerves II-XII grossly intact. Motor is 5/5 in bilateral upper and lower extremities proximal to distal. No sensory deficits. HEENT: Face is symmetric. Pupils are equal and reactive. Extraocular movements are intact. NECK: Supple. No JVD. No thyromegaly. No submental, submandibular, pre- /postauricular, occipital or supraclavicular lymphadenopathy. CHEST: Normal chest expansion. No Telemetry. LUNGS: Absence of any rales, rhonchi or any wheezing. CARDIOVASCULAR: Regular. S1 and S2 normal. No appreciable rubs, murmurs or gallops. ABDOMEN: Soft, ++tender, and ++distended. There is no rebound, voluntary guarding, or rigidity. : Deferred. ++ Castaneda. EXTREMITIES: Non-edematous and not cyanotic. No clubbing. Good capillary r efill. SKIN: No skin breakdown. Vital Signs (last 8hr) Date Time Temp Pulse Resp B/P (MAP) Pulse Ox O2 Delivery O2 Flow Rate FiO2 10/31/24 08:00 98.4 77 18 149/95 96 Room Air 10/31/24 04:18 97.9 76 20 153/93 97 Room Air LABS: Laboratory: Test 10/31/24 05:34 10/30/24 05:11 10/29/24 15:25 10/29/24 10:44 Range/Units White Blood Count 6.6 4.8-10.8 K/uL Red Blood Count 4.88 4.50-6.20 MIL/uL Hemoglobin 15.2 14.0-18.0 g/dL Hematocrit 43.0 42-54 % Mean Corpuscular Volume 88.1 79-99 fL Mean Corpuscular Hemoglobin 31.1 27.0-33.0 pg Mean Corpuscular Hemoglobin Concent 35.3 32.0-36.0 g/dL Red Cell Distribution Width 13.9 11.0-15.5 % Platelet Count 133 130-400 K/uL Mean Platelet Volume 10.6 H 7.5-10.5 fL Nucleated Red Blood Cells 0.0 0.0-0.19 % Sodium Level 136 136-145 mmol/L Potassium Level 3.4 L 3.5-5.1 mmol/L Chloride Level 104 101-111 mmol/L Carbon Dioxide Level 24 21-32 mmol/L Blood Urea Nitrogen 14 7-18 mg/dL Creatinine 1.1 0.5-1.3 mg/dL Glomerular Filtration Rate Calc 78 >90 mL/min Random Glucose 123 H 70-105 mg/dL Total Calcium 8.1 L 8.5-10.1 mg/dL Magnesium Level 2.20 1.80-2.40 mg/dL Total Bilirubin 0.9 0.2-1.0 mg/dL Aspartate Amino Transf (AST/SGOT) 34 10-37 U/L Alanine Aminotransferase (ALT/SGPT) 35 12-78 U/L Alkaline Phosphatase 99 50-136 U/L Total Protein 6.2 6.0-8.3 g/dL Albumin 2.5 L 3.5-5.0 g/dL Immature Granulocyte % (Auto) 0.5 0-1 % Neutrophils (%) (Auto) 85.8 H 40.0-77.0 % Lymphocytes (%) (Auto) 5.5 L 21.0-51.0 % Monocytes (%) (Auto) 7.8 3.0-13.0 % Eosinophils (%) (Auto) 0.1 0.0-8.0 % Basophils (%) (Auto) 0.3 0.0-5.0 % Neutrophils # (Auto) 8.2 H 1.8-7.7 K/uL Lymphocytes # (Auto) 0.5 L 1.0-4.8 K/uL Monocytes # (Auto) 0.7 0.1-1.0 K/uL Eosinophils # (Auto) 0.01 0.00-0.70 K/uL Basophils # (Auto) 0.03 0.00-0.20 K/uL Absolute Immature Granulocyte (auto 0.05 0-1 K/uL Hemoglobin A1c 5.3 4.0-6.0 % Estimated Average Glucose (eAG) 105 70-126 mg/dL Triglycerides Level 127 30-200 mg/dL Cholesterol Level 131 <200 mg/dL LDL Cholesterol 87 0-99 mg/dL HDL Cholesterol 27 L 29-71 mg/dL Thyroid Stimulating Hormone (TSH) 1.57 0.36-3.74 uIU/mL Whole Blood Glucose 108 70-110 MG/DL Urine Color YELLOW YELLOW Urine Appearance HAZY CLEAR Urine pH 7.5 5.0-8.0 Urine Specific [place] 1.030 1.001-1.031 Urine Protein 100 H NEGATIVE mg/dL Urine Glucose (UA) NEGATIVE NEGATIVE mg/dL Urine Ketones 20 H NEGATIVE mg/dL Urine Occult Blood MODERATE H NEGATIVE Urine Nitrate NEGATIVE NEGATIVE Urine Bilirubin NEGATIVE NEGATIVE mg/dL Urine Urobilinogen >=8.0 H 0.2-1.0 mg/dL Urine Leukocyte Esterase 500 H NEGATIVE Salvatore/uL Urine RBC 26-50 H 0-1 /HPF Urine WBC TNTC H 0-1 /HPF Urine Bacteria FEW None Seen /HPF Test 10/29/24 10:06 Range/Units Segmented Neutrophils % 62 40-70 % Band Neutrophils % 28 H 0-2 % Lymphocytes % (Manual) 6 L 22-44 % Monocytes % (Manual) 3 2-9 % Eosinophils % (Manual) 1 1-6 % Differential Comment MANUAL DIFFERENTIAL White Cell Morphology Comment CONSISTENT W/DIFF Platelet Morphology Comment ADEQUATE Red Blood Cell Morphology NORMAL Current Medications Medications (Trade) Dose Ordered Sig/Isaak Route PRN Reason Start Time Stop Time Status Last Admin Dose Admin Acetaminophen (TYLenol 325MG TAB) 650 mg Q4H PRN PO TEMPERATURE GREATER THAN 101.5 10/29/24 13:00 11/28/24 12:59 10/30/24 16:50 650 MG Acetaminophen/ Codeine Phosphate (TYLenol-coDEINE TAB) 1 tab Q4H PRN PO MODERATE PAIN (4-6) 10/29/24 15:30 11/28/24 15:29 Ceftriaxone Sodium (ROCEphine 1G INJ) 1 gm Q24H IVPB 10/30/24 13:00 10/30/24 10:58 DC Ceftriaxone Sodium (Rocephin 2gm Inj) 2 gm Q24H IVPB 10/30/24 13:00 11/09/24 12:59 10/30/24 14:36 2 GM Lactulose (Constulose 20gm/ 30ml Udcup) 20 gm BID PRN PO CONSTIPATION 10/29/24 13:00 11/28/24 12:59 10/31/24 08:33 20 GM Magnesium Sulfate 50 ml @ 0 mls/hr PROTOCOL PRN IV low mag level 10/29/24 13:00 11/28/24 12:59 10/31/24 00:27 25 MLS/HR Ondansetron HCl (zoFRAN 4MG INJ) 4 mg Q6H PRN IVP NAUSEA/VOMITING 10/29/24 13:00 11/28/24 12:59 Potassium Chloride 100 ml @ 100 mls/hr AD PRN IV POTASSIUM PROTOCOL 10/29/24 13:00 11/28/24 12:59 Potassium Chloride (K-Dur/Klor-Con 20meq) 20 meq AD PRN PO POTASSIUM PROTOCOL 10/29/24 13:00 11/28/24 12:59 10/31/24 08:35 20 MEQ Potassium Chloride (KCl 10% Elixir 20meq/15ml) 20 meq AD PRN PO POTASSIUM PROTOCOL 10/29/24 13:00 11/28/24 12:59 Tamsulosin HCl (FloMAX) 0.4 mg DAILY PO 10/30/24 09:00 11/29/24 08:59 8/4/25 08:26 0.4 MG DIAGNOSTICS / RADIOLOGY: [ ] ASSESSMENT: suspecting bacteremia POA UTI gram negative ESBL POA Failed outpatient treatment POA Leukocytosis POA Dehydration Intractable abdominal pain POA Adult obesity class I POA Suspecting BPH CT abdomen Moderate prostatomegaly POA Essential hypertension POA PLAN: Admit: Med surge condition: Guarded Status: Full code IVF heplock Consultants we will consider I and D Antibiotics: Rocephin 2 g every24 hours Bacteremia ESBL urine ESBL repeat blood cultures in process Flomax 0. 4 mg p.o. daily Lisinopril 10 mg p.o. daily Labs CBC CMP in a.m. Replace electrolytes as needed as per protocol to keep potassium above 4.0 magnesium 2.0. Pain management: Tylenol No.3 As needed Supportive measures: DVT ppx, GI ppx all questions answered Supervising MD: Dr. Flip Roblero c/d This document was generated in part using voice recognition software, occasional wrong word or sound alike substitutions may have occurred due to the inherent limitations of voice recognition software. Read the chart carefully and recognize using context, where the substitutions have occurred. Although every effort was made to edit the content, oracle security consultant and typing errors may occur ATTESTATION BY PHYSICIAN I have seen and examined the patient. I reviewed the documentation, medical decision making, and treatment plan as noted by the mid-level provider above. I agree with the findings and plan of care. Gayle Castelan MD, ELIZABETH NP Oct 31, 2024 09:45
[2024-10-31] MEDS: LISINOPRIL 10 MG TABLET PO ONE (11:32)
--- NOTE | 2024-10-31 17:23 | NUR ---
Nutrition consult per poor appetite Reviewed labs, notes, and medications. Pt with abd pain, prefers Slovenian, on HH, K 3.4(L), BG 123(H), Ca 8.1(L), HDL 27(L) per chart review. Wt via standing scale, 50%PO intake, last BM 10/28/24, no edema, well nourished, no wounds, -180 ml balance 10/30/24 per nursing. Family in room during visit. brought jessica from [employer]. Pt reported poor appetite, did not each lunch, agreeable to ensure HP and prostat jello, NKFA, no PCP, no insurance, takes MVI QD, denied abd pain, UBW 190 lbs. Recommendations: -Provide HH+ ensure HP and prostat jello BID w/ am and dinner -Monitor PO intake -Encourage PO intake as able -If poor PO intake continues consider appetite stimulant -Monitor BM -If no BM >3 days consider stool softener -Monitor electrolytes -Replenish electrolytes per protocol -Monitor wts -Reweigh as able -Order Vit D, vit b-12 labs to rule out deficiencies -Order lipid panel, A1C -Provide MVI QD -Recommend Pt to follow up with PCP -Monitor goals of care RD to follow + available for consult per protocol Addendum: 10/31/24 at [address] Amended: Links added.
[2024-11-01] VITALS: BP 140/86; PULSE 71; RESP 20; TEMP 98.1
[2024-11-01 04:00] VITALS: BP 146/84; PULSE 67; RESP 20; TEMP 98.3
[2024-11-01 07:50] VITALS: O2SAT 97
[2024-11-01 08:00] VITALS: BP 142/95; PULSE 59; RESP 18; TEMP 97.6
--- NOTE | 2024-11-01 08:30 | NUR ---
LATE ENTRY FOR 10/31/2024 @ 0900 PATIENT'S BP ELEVATED @ 149/95 P77 . NURSE ASKED PATIENT IF EVERY TAKEN ANY BP MEDICATIONS OR HAS BEEN TOLD HE HAD HTN. PATIENT VOICED YES AND WAS PLACED ON BP MEDICATIONS BUT DID NOT TAKE THEM BECAUSE HE STATED FELT WELL. UNABLE TO VOICE NAME OR DOSAGE ON MEDICATION PRESCRIBED. EDUCATED PATIENT ON HTN AND POSSIBLE RISKS IF NOT CONTROLLED. PATIENT VOICED UNDERSTANDING. PROVIDER NOTIFIED. PENDING CALLBACK. NO ORDERS AT THIS TIME.
[2024-11-01] MEDS: LISINOPRIL 10 MG TABLET PO SCH (08:37)
--- NOTE | 2024-11-01 09:51 | PN ---
[facility] PROGRESS NOTE Date of Service: Nov 01, 2024 Time of Service: 09:48 SUBJECTIVE: [ ] Admission date 10/29/2024 Chief complaints abdominal pain PCP self referral This is a 58-year-old male that presents in ED with chief complaints of suprapubic abdominal pain. Onset two days. Patient came to ED yesterday and was discharged home with oral antibiotics for UTI. By patient continue to have abdominal pain secondary to abdomen distention at home unable to urinate patient reports during urination burning in small amounts of urine. Patient came to ED for further evaluation and treatment patient was given pain medication and Castaneda catheter was placed. Bladder scan was done in ED no urinary retention. Patient got some relief once Castaneda catheter was placed. Patient has no past history of recurrent UTIs. Denies any prostate problems in the past. Denied fever chills nausea or vomiting. 10/30/24 patient continues with low-grade temperature. Urine cultures with Gram- negative ESBL and blood cultures growing gram negative simi We will continue with Rocephin2 g IV daily. Replace electrolytes as needed we will discontinue Castaneda bladder training. 10/31/24 patient is sitting in chair appears in no distress. Blood cultures were repeated patient on admission cultures ESBL bacteremia in blood in urine. He is currently on Rocephin2 g daily. Remove Castaneda catheter yesterday patient's urine output is adequately. 11/01/24 patient is sitting in chair denied chest pain or shortness for breath. Ruled in bacteremia ESBL ID consulted for antibiotics recommendations. REVIEW OF SYSTEMS A12 point ROS was obtained all relevant positives were documented otherwise ROS negative PHYSICAL EXAM GENERAL APPEARANCE: The patient is awake, alert, and oriented, in no acute cardiopulmonary distress. NEUROLOGICAL: Cranial nerves II-XII grossly intact. Motor is 5/5 in bilateral upper and lower extremities proximal to distal. No sensory deficits. HEENT: Face is symmetric. Pupils are equal and reactive. Extraocular movements are intact. NECK: Supple. No JVD. No thyromegaly. No submental, submandibular, pre-/posta uricular, occipital or supraclavicular lymphadenopathy. CHEST: Normal chest expansion. No Telemetry. LUNGS: Absence of any rales, rhonchi or any wheezing. CARDIOVASCULAR: Regular. S1 and S2 normal. No appreciable rubs, murmurs or gallops. ABDOMEN: Soft, ++tender, and ++distended. There is no rebound, voluntary guarding, or rigidity. : Deferred. ++ Castaneda. EXTREMITIES: Non-edematous and not cyanotic. No clubbing. Good capillary refill. SKIN: No skin breakdown. Vital Signs (last 8hr) Date Time Temp Pulse Resp B/P (MAP) Pulse Ox O2 Delivery O2 Flow Rate FiO2 11/01/24 08:00 97.5 59 18 142/95 97 Room Air 11/01/24 04:00 98.2 67 20 146/84 96 Room Air LABS: Laboratory: Test 11/01/24 05:57 10/31/24 05:34 Range/Units Hemoglobin A1c 5.4 4.0-6.0 % Estimated Average Glucose (eAG) 108 70-126 mg/dL Vitamin B12 Level 446 193-986 pg/mL White Blood Count 6.6 4.8-10.8 K/uL Red Blood Count 4.88 4.50-6.20 MIL/uL Hemoglobin 15.2 14.0-18.0 g/dL Hematocrit 43.0 42-54 % Mean Corpuscular Volume 88.1 79-99 fL Mean Corpuscular Hemoglobin 31.1 27.0-33.0 pg Mean Corpuscular Hemoglobin Concent 35.3 32.0-36.0 g/dL Red Cell Distribution Width 13.9 11.0-15.5 % Platelet Count 133 130-400 K/uL Mean Platelet Volume 10.6 H 7.5-10.5 fL Nucleated Red Blood Cells 0.0 0.0-0.19 % Sodium Level 136 136-145 mmol/L Potassium Level 3.4 L 3.5-5.1 mmol/L Chloride Level 104 101-111 mmol/L Carbon Dioxide Level 24 21-32 mmol/L Blood Urea Nitrogen 14 7-18 mg/dL Creatinine 1.1 0.5-1.3 mg/dL Glomerular Filtration Rate Calc 78 >90 mL/min Random Glucose 123 H 70-105 mg/dL Total Calcium 8.1 L 8.5-10.1 mg/dL Magnesium Level 2.20 1.80-2.40 mg/dL Total Bilirubin 0.9 0.2-1.0 mg/dL Aspartate Amino Transf (AST/SGOT) 34 10-37 U/L Alanine Aminotransferase (ALT/SGPT) 35 12-78 U/L Alkaline Phosphatase 99 50-136 U/L Total Protein 6.2 6.0-8.3 g/dL Albumin 2.5 L 3.5-5.0 g/dL Current Medications Medications (Trade) Dose Ordered Sig/Isaak Route PRN Reason Start Time Stop Time Status Last Admin Dose Admin Acetaminophen (TYLenol 325MG TAB) 650 mg Q4H PRN PO TEMPERATURE GREATER THAN 101.5 10/29/24 13:00 11/28/24 12:59 10/30/24 16:50 650 MG Acetaminophen/ Codeine Phosphate (TYLenol-coDEINE TAB) 1 tab Q4H PRN PO MODERATE PAIN (4-6) 10/29/24 15:30 11/28/24 15:29 11/01/24 04:30 1 TAB Ceftriaxone Sodium (ROCEphine 1G INJ) 1 gm Q24H IVPB 10/30/24 13:00 10/30/24 10:58 DC Ceftriaxone Sodium (Rocephin 2gm Inj) 2 gm Q24H IVPB 10/30/24 13:00 11/09/24 12:59 10/31/24 11:32 2 GM Lactulose (Constulose 20gm/ 30ml Udcup) 20 gm BID PRN PO CONSTIPATION 10/29/24 13:00 11/28/24 12:59 10/31/24 08:33 20 GM Lisinopril (Prinivil 10mg) 10 mg DAILY PO 11/01/24 09:00 12/01/24 08:59 11/01/24 08:37 10 MG Magnesium Sulfate 50 ml @ 0 mls/hr PROTOCOL PRN IV low mag level 10/29/24 13:00 11/28/24 12:59 10/31/24 00:27 25 MLS/HR Ondansetron HCl (zoFRAN 4MG INJ) 4 mg Q6H PRN IVP NAUSEA/VOMITING 10/29/24 13:00 11/28/24 12:59 Potassium Chloride 100 ml @ 100 mls/hr AD PRN IV POTASSIUM PROTOCOL 10/29/24 13:00 11/28/24 12:59 Potassium Chloride (K-Dur/Klor-Con 20meq) 20 meq AD PRN PO POTASSIUM PROTOCOL 10/29/24 13:00 11/28/24 12:59 10/31/24 08:35 20 MEQ Potassium Chloride (KCl 10% Elixir 20meq/15ml) 20 meq AD PRN PO POTASSIUM PROTOCOL 10/29/24 13:00 11/28/24 12:59 Tamsulosin HCl (FloMAX) 0.4 mg DAILY PO 10/30/24 09:00 11/29/24 08:59 11/01/24 08:37 0.4 MG DIAGNOSTICS / RADIOLOGY: [ ] ASSESSMENT: suspecting bacteremia ruled in POA UTI gram negative ESBL POA Failed outpatient treatment POA Leukocytosis POA Dehydration Intractable abdominal pain POA Adult obesity class I POA Suspecting BPH CT abdomen Moderate prostatomegaly POA Essential hypertension POA PLAN: Admit: Med surge condition: Guarded Status: Full code IVF heplock Weight Analyst infectious disease for abt's recommendations. Antibiotics: Rocephin 2 g every24 hours Bacteremia ESBL urine ESBL repeat blood cultures so far negative Flomax 0. 4 mg p.o. daily Lisinopril 10 mg p.o. daily blood pressure much controlled Labs CBC CMP in a.m. Replace electrolytes as needed as per protocol to keep potassium above 4.0 magnesium 2.0. Pain management: Tylenol No.3 As needed Supportive measures: DVT ppx, GI ppx all questions answered Supervising MD: Dr. Castelan P c/d This document was generated in part using voice recognition software, occasional wrong word or sound alike substitutions may have occurred due to the inherent limitations of voice recognition software. Read the chart carefully and recognize using context, where the substitutions have occurred. Although every effort was made to edit the content, loftsman/woman and typing errors may occur ATTESTATION BY PHYSICIAN I have seen and examined the patient. I reviewed the documentation, medical decision making, and treatment plan as noted by the mid-level provider above. I agree with the findings and plan of care. Gayle Castelan MD, ELIZABETH NP Nov 01, 2024 09:51
[2024-11-01 12:00] VITALS: BP 155/93; PULSE 60; RESP 18; TEMP 98.5
[2024-11-01] MEDS: ZOSYN 3.375GM +NS 50ML IV SCH (12:15)
[2024-11-01 13:05] LABS: INR 0.98 (0.85-1.15)
[2024-11-01 16:00] VITALS: BP 123/88; PULSE 86; RESP 18; TEMP 98
--- NOTE | 2024-11-01 16:28 | CONS ---
INFECTIOUS DISEASE CONSULTATION DATE OF SERVICE: 11/01/2024 REQUESTING PHYSICIAN: Candelaria Ibarra NP REASON FOR CONSULTATION: UTI and antibiotic management. HISTORY OF PRESENT ILLNESS: A 58-year-old male with obesity, presented to the hospital with abdominal pain and urinary symptoms. The patient claims symptoms have been going on for about 3-4 days. The patient came to the Emergency Room on 09/29. Urinalysis was done, which showed the patient to have infection. He was given antibiotic and sent home. The patient came back to the Emergency Room due to persistent symptoms with abdominal pain, dysuria and urinary frequency, no hematuria. Urinalysis was positive with wbc too numerous to count. Blood culture is negative. Urine culture done during the previous ER visit came back positive for E. coli (ESBL). The patient has been started on ceftriaxone. No cough, no shortness of breath. No palpitation or orthopnea. PAST MEDICAL HISTORY: Obesity. PAST SURGICAL HISTORY: Denies. ALLERGIES: No known drug allergies. CURRENT MEDICATIONS: Reviewed, include: * Flomax. * Lisinopril. * Ceftriaxone. SOCIAL HISTORY: No alcohol, tobacco or illicit drug use. FAMILY HISTORY: Noncontributory. REVIEW OF SYSTEMS: Greater than 10 systems were reviewed, negative except as documented above. PHYSICAL EXAMINATION: GENERAL: Middle-age male, awake. VITAL SIGNS: Temperature 97.5, pulse 59, respiratory rate 18, BP 142/95. EYES: No icterus. Pupils equal and reactive. HENT: No oral thrush seen. Moist oral mucosa. NECK: Supple. No JVD or thyromegaly. LUNGS: Good air entry. No rales. No rhonchi. CARDIOVASCULAR SYSTEM: S1 and S2, regular. No murmur heard. ABDOMEN: Full, soft, nontender. Bowel sound is present. CENTRAL NERVOUS SYSTEM: Awake, alert, oriented x 3. No focal deficits. SKIN: No rashes. No itchiness. LYMPHATIC: No peripheral lymphadenopathy. BACK: No deformity. No pressure ulcer. HEMATOLOGIC: No bleeding or petechial lesions seen. MUSCULOSKELETAL: No joint swelling, erythema or tenderness. LABORATORY DATA: Sodium 136, potassium 3.4. BUN 14, creatinine 1.1. WBC 6.6, hemoglobin 15.2, platelets 133. Urinalysis, wbc too numerous to count. Blood culture, no growth for one day. RADIOLOGY: Abdominal sonogram shows left renal stone, which is not obstructing. ASSESSMENT: A 58-year-old male presented with fever and urinary symptoms. Current problems include: * UTI. * Infection with multidrug-resistant organism. * Obesity. * Nonobstructing nephrolithiasis. * Hypokalemia. PLAN: * The patient will be given Zosyn. * Discontinue ceftriaxone. * Continue Flomax. * Continue IV fluids. * Followup cultures. * Continue pain management. * Continue GI prophylaxis. * Monitor electrolyte and correct as needed. * The patient will be followed up closely. Thank you for allowing me to participate in the care of this patient. TID: [id number] RECEIPT: [id number]
[2024-11-01] MEDS ORDERED: LISI10TA24 PO (17:01)
--- NOTE | 2024-11-01 17:02 | DS ---
Discharge Summary Hospital Course Summary: Admission date 10/29/2024 Chief complaints abdominal pain PCP self referral This is a 58-year-old male that presents in ED with chief complaints of suprapubic abdominal pain. Onset two days. Patient came to ED yesterday and was discharged home with oral antibiotics for UTI. By patient continue to have abdominal pain secondary to abdomen distention at home unable to urinate patient reports during urination burning in small amounts of urine. Patient came to ED for further evaluation and treatment patient was given pain medication and Castaneda catheter was placed. Bladder scan was done in ED no urinary retention. Patient got some relief once Castaneda catheter was placed. Patient has no past history of recurrent UTIs. Denies any prostate problems in the past. Denied fever chills nausea or vomiting. 10/30/24 patient continues with low-grade temperature. Urine cultures with Gram- negative ESBL and blood cultures growing gram negative simi We will continue with Rocephin2 g IV daily. Replace electrolytes as needed we will discontinue Castaneda bladder training. 10/31/24 patient is sitting in chair appears in no distress. Blood cultures were repeated patient on admission cultures ESBL bacteremia in blood in urine. He is currently on Rocephin2 g daily. Remove Castaneda catheter yesterday patient's urine output is adequately. 11/01/24 patient is sitting in chair denied chest pain or shortness for breath. ESBL ID consulted for antibiotics recommendations. Recommended Zosyn IV outpatient setting infusion good socrates. Patient got a midline patient is hemodynamically stable for discharge denied chest pain shortness a breath. On this admission patient with elevated blood pressure patient reports he was on blood pressure medication before then he just decided to stop taking medication advised patient to continue with medication prescribed lisinopril 10 mg p.o. daily and to follow-up with his PCP for blood pressure monitoring and management he verbalized understanding. Procedure(s): REASON: stones ORDERING PHYSICIAN: DESMOND MURILLO NP PROCEDURE: RENAL - US RENAL SONOGRAM EXAMINATION: ULTRASOUND OF THE RETROPERITONEUM. CLINICAL HISTORY: Renal calculi. COMPARISON: CT abdomen and pelvis with contrast dated 10/28/2024. TECHNIQUE: Real-time grayscale ultrasound images of the kidneys. FINDINGS: The kidneys are normal in caliber, the right kidney measures 9.2 x 4.8 x 3.3 cm and the left kidney measures 10.8 x 5.1 x 3.7 cm in its craniocaudal, AP, and transverse dimensions respectively. There is normal renal cortical thickness, and cortical echogenicity. There is no right renal calculus or hydronephrosis bilaterally. There is a calculus that measures 0.3 cm in the lower pole of the left kidney. The urinary bladder is empty with normal wall thickness (0.33 cm). There is Castaneda???s bulb. IMPRESSION: Left renal calculus. No obstruction. Castaneda???s bulb is in situ. Assessment/Plan: Discharged dx's: suspecting bacteremia ruled out POA UTI gram negative ESBL POA Failed outpatient treatment POA Leukocytosis POA Dehydration Intractable abdominal pain POA Adult obesity class I POA Suspecting BPH CT abdomen Moderate prostatomegaly POA Essential hypertension POA PLAN: ADMISSION DATE: 10/29/24 DISCHARGE DATE: 11/01/2024 DISPOSITION: Home with outpatient infusion clinic [facility] for IV antibiotics was discharged with midline. CONDITION: Stable CHIEF OPHTHALMIC TECHNICIAN(S): Infectious disease FOLLOW UP APPOINTMENT(S): [facility] infusion therapy Zosyn IV for 14 days PROCEDURES: none IMAGING (S) report attached to summary : renal MICROBIOLOGY: report attached to summary; urine and blood ACTIVITY: ab manny HOME MEDICATIONS: none profile CHANGES ON HOME MEDICATIONS none NEW MEDICATIONS lisinopril 10 mg po daily, Zosyn TEACHING: Advised patient to continue with blood pressure medication to avoid not taking medication and to follow-up with PCP for blood pressure monitoring. Emergency instructions: The patient was instructed to present to the nearest Emergency Department or call 911 should their symptoms return or worsen. Discharge Instructions: RUN DATE: 10/30/24 [facility] RUN TIME: [address] [address], [place] [address] Department of Laboratories [facility] # [id number] Accounts Payable Manager: Crystal Vuong DO Specimen Report PATIENT: MAURICE CHAVEZ ACCT: [id number] LOC: [facility] U: [id number] AGE/SX: 58/M ROOM: RE10/27/[address]: LANDON TRIPLETT MD : 1965 BED: DIS: STATUS: DEP ER TLOC: SPEC: [id number] KAREN: 10/27/24 STATUS: COMP REQ: [id number] RECD: 10/28/24-[address]: LANDON TRIPLETT MD [place] [facility] [place] JACI GARCIA: THALIA SPDESC: CLEAN CAT ORDERED: AERO ID & SENS Procedure Result Shannan Date-Time AEROBIC ID & SENSITIVITIES Final 10/30/24-920 MRL EXTENDED SPECTRUM BETA-LACTAMASE ORGANISM IDENTIFIED. CRITICAL RESULT WAS CALLED BY GIANNA CONLEY ON 10/30/24 AT 0920. CRITICAL VALUES WERE READ BACK AND ACKNOWLEDGED BY YOKO CALVO ( [facility] [place] COLONY DESCRIPTION: DAY 1: COLONY COUNT: >100,000 CFU/ML GRAM NEGATIVE RODS IDENTIFICATION AND SENSITIVITY TO FOLLOW COMMENTS(R): ESBL ESCHERICHIA COLI E COLI M.I.C. RX --------- ---- AMPICILLIN >16 R* AZTREONAM 8 ESBL CEFAZOLIN >16 R* CEFTAZIDIME 4 ESBL CEFTAZIDIME/AVIBACTAM <=8 S CEFTRIAXONE >2 ESBL CIPROFLOXACIN 1 R GENTAMICIN <=2 S LEVOFLOXACIN 1 I NITROFURANTOIN <=32 S MEROPENEM <=1 S PIPERACILLIN/TAZOBACTAM <=8 S TRIMETHOPRIM/SUFLAMETHOXAZOLE <=2/38 S ESCHERICHIA COLI: NEGATIVE/URINE COMBO 62 Lab Alert - ESBL (Extended-Spectrum Beta-Lactamase bowling ball engraver) @ [facility] [place] Test Performed at: [facility] [address], [place], [place] Medical Technical Sales Representative: Rogelio Rojas D.O. RUN DATE: 10/30/24 [facility] [address] RUN TIME: [phone] [place] [address] Department of Laboratories CLIA # [id number] Accounts Payable Manager: Crystal Vuong DO Specimen Report SPEC: [id number] PATIENT: MAURICE CHAVEZ [id number] (Continued) CONTINUED ON NEXT PAGE Home Medications: Active Scripts Lisinopril (Lisinopril) 10 Mg Tablet, 10 MG PO DAILY for 30 Days, #30 30 Prov:DESMOND MURILLO NP 11/01/24 Discontinued Scripts Cephalexin Monohydrate (Keflex) 500 Mg Cap, 500 MG PO QID for 7 Days, #28 CAP Prov:LANDON TRIPLETT MD 10/28/24 New Medications: Lisinopril (Lisinopril) 10 Mg Tablet 10 MG PO DAILY for 30 Days, #30 30 Time spent arranging discharge: 31-60 minutes ATTESTATION BY PHYSICIAN I have seen and examined the patient. I reviewed the documentation, medical decision making, and treatment plan as noted by the mid-level provider above. I agree with the findings and plan of care. Gayle Castelan MD, ELIZABETH NP Nov 01, 2024 17:02
--- NOTE | 2024-11-01 17:18 | NUR ---
DISCHARGE DISCHARGE ORDERS FOR PATIENT TO BE DISCHARGED HOME OBTAINED. DISCHARGE INSTRUCTIONS, FOLLOW UP APPOINTMENT WITH [facility] DOCUMENTATION GIVEN TO PATIENT AND AT BEDSIDE. BOTH VOICED UNDERSTANDING. IV DISCONTINUED, CATHETER INTACT, NO S/S OF INFECTION NOTED TO SITE. PATIENT TOLERATED WELL. BANDS REMOVED. MIDLINE IN PLACE. NO DRAINAGE OR BLEEDING NOTED TO SITE. PENDING TRANSPORTATION.
--- NOTE | 2024-11-01 18:32 | NUR ---
DISCHARGE 1800 PATIENT LEFT AMBULATING ACCOMPANIED BY . REFUSED WHEELCHAIR. NO S/S OF DISTRESS NOTED.
== END 2024-11-01 17:45 | disposition home or self-care (01) | DRG 872 ==
LOC: EDH 09:51 → EDHIP 12:38 → 3DH 13:40
PROVIDERS: ADMIT Hospitalist; ATTEND Hospitalist
PROC: 05HC33Z Insertion of Infusion Device into Left Basilic Vein, Percutaneous Approach (ICD-10-PCS; principal; 2024-11-01)
PROC: B54NZZA Ultrasonography of Left Upper Extremity Veins, Guidance (ICD-10-PCS; 2024-11-01)
DX: A41.9 Sepsis, unspecified organism (principal); Z16.24 Resistance to multiple antibiotics; N39.0 Urinary tract infection, site not specified; E66.811 Obesity, class 1; E87.6 Hypokalemia; N40.0 Benign prostatic hyperplasia without lower urinary tract symptoms; D72.829 Elevated white blood cell count, unspecified; I10 Essential (primary) hypertension; E86.0 Dehydration; N20.0 Calculus of kidney; Z68.27 Body mass index [BMI] 27.0-27.9, adult; Z79.899 Other long term (current) drug therapy
CPT/HCPCS: 36415; 36556; 76770; 80048; 80053; 80061; 81001; 82306; 82607; 82948; 83036; 83735; 84153; 84443; 85025; 85027; 85610; 85730; 87040; 96374; 96375; 99285; C1894; G0378; J0696; J1885; J2270; J2405; J2543; J3475; C1751